=== PATIENT | female | born 1950 | race Caucasian/White ===

== ENCOUNTER 2020-09-27 14:39 | Inpatient (IN) | payer OTHER, MEDICAID ==
[~2020-09-27] VITALS: Ht 157.5 cm; Wt 114.5 kg
[2020-09-27 14:39] VITALS: BP 103/61
[2020-09-27 15:31] LABS: ABSOLUTE NEUTROPHILS 3.2 thou/uL (1.4-8.2); BASOPHILS 0.8 % (0.0-2.0); EOSINOPHILS 3.6 % (0.0-3.0); HEMATOCRIT 33.9 % (37.0-47.0); LYMPHOCYTES 25.9 % (24.0-44.0); MCH 29.8 pg (26.0-34.0); MCHC 32.3 g/dL (28.0-37.0); MCV 92.2 fL (80.0-100.0); MONOCYTES 14.7 % (1.0-8.0); PLATELET COUNT 199 thou/uL (150-400); RBC 3.68 mil/uL (4.20-5.00); RDW 17.9 % (10.5-14.5); WBC 5.8 thou/uL (4.0-11.0)
[2020-09-27 15:42] LABS: ANION GAP 12 mmol/L (7-16); BUN 77 mg/dL (7-18); CALCIUM 10.2 mg/dL (8.5-10.1); CHLORIDE 109 mmol/L (98-107); CO2 22 mmol/L (21-32); CREATININE 2.3 mg/dL (0.6-1.0); GLUCOSE 69 mg/dL (74-106); POTASSIUM 5.2 mmol/L (3.5-5.1); SODIUM 143 mmol/L (136-145)
[2020-09-27 15:53] LABS: ALBUMIN 3.8 g/dL (3.4-5.0); SGOT 27 U/L (15-37); SGPT 24 U/L (14-59); TOTAL BILIRUBIN 0.3 mg/dL (0.2-1.0); TOTAL PROTEIN 7.4 g/dL (6.4-8.2); TROPONIN-I <0.06 ng/mL (<0.06)
[2020-09-27 16:18] LABS: URINE BLOOD NEGATIVE (Negative); URINE CLARITY CLEAR; URINE COLOR YELLOW; URINE GLUCOSE-RANDOM* NEGATIVE (Negative); URINE KETONES 1+ (Negative); URINE LEUKOCYTES-REFLEX NEGATIVE (Negative); URINE NITRITE-REFLEX NEGATIVE (Negative); URINE PROTEIN (DIPSTICK) NEGATIVE (Negative); URINE SPECIFIC GRAVITY 1.015 (1.005-1.035); URINE UROBILINOGEN 0.2 E.U./dl (0.2-1.0)
[2020-09-27 16:21] LABS: ICTOTEST (BILI CONFIRMATORY) Negative (Negative); URINE BILIRUBIN NEGATIVE (Negative)
[2020-09-27 18:04] LABS: BE(vivo) -6.1 mmol/L (-2 to +3); HCO3 19.5 mmol/L (22.0-26.0); PCO2 38.8 mmHg (35.0-45.0); PO2 89.2 mmHg (80.0-100.0); pH 7.318 (7.360-7.450); sO2 96.2 % (92.0-98.0)
--- NOTE | 2020-09-27 19:07 | NUR ---
REPORT GIVEN TO CLARE PEREZ AT THIS TIME
[2020-09-27 19:59] VITALS: BP 103/60
[2020-09-27 22:58] LABS: BE(vivo) -7.5 mmol/L (-2 to +3); HCO3 18.2 mmol/L (22.0-26.0); PCO2 37.6 mmHg (35.0-45.0); PO2 69.2 mmHg (80.0-100.0); sO2 92.3 % (92.0-98.0)
[2020-09-27 22:59] LABS: pH 7.302 (7.360-7.450)
[2020-09-28 00:11] LABS: CALCIUM 9.6 mg/dL (8.5-10.1); CREATININE 1.7 mg/dL (0.6-1.0); POTASSIUM 5.3 mmol/L (3.5-5.1)
--- NOTE | 2020-09-28 01:38 | NUR ---
TRANSITION OF CARE FAXED TO [facility]
[2020-09-28 02:37] VITALS: BP 108/52
[2020-09-28] MEDS ORDERED: DIAZEPAM 10 MG10 M1 PO (04:31)
[2020-09-28] MEDS ORDERED: COLACE100 MG PO (04:31)
[2020-09-28] MEDS ORDERED: TIZANIDINE HCL2 M1 PO (04:33)
[2020-09-28] MEDS ORDERED: CALCIUM500 MG PO (04:34)
[2020-09-28] MEDS ORDERED: CHILDREN'S ZYRT10 M1 PO (04:35)
[2020-09-28] MEDS ORDERED: FAMOTIDINE 20 M20 MG PO (04:36)
[2020-09-28] MEDS ORDERED: FUROSEMIDE 40 M40 MG PO (04:36)
[2020-09-28] MEDS ORDERED: HYDROCODON-ACE1 EAC5 PO (04:41)
[2020-09-28] MEDS ORDERED: LISINOPRIL20 MG PO (04:41)
[2020-09-28] MEDS ORDERED: MELOXICAM15 MG PO (04:42)
[2020-09-28] MEDS ORDERED: OLANZAPINE5 M1 PO (04:43)
[2020-09-28] MEDS ORDERED: PRENATAL PO (04:44)
[2020-09-28] MEDS ORDERED: TRAZODONE HCL50 MG PO (04:44)
[2020-09-28] MEDS ORDERED: VITAMIN D21250 MCG PO (04:45)
[2020-09-28] MEDS ORDERED: HYDROCHLOROTHIA25 M1 PO (04:49)
[2020-09-28 05:24] VITALS: BP 138/77
--- NOTE | 2020-09-28 07:33 | NUR ---
ASSUMED CARE OF PT FROM ED AT 0230, PT IS ALERT/O X2. MEJIA CATHERTER IS IN PLACE AND PATENT. ASSESSMENT COMPLETED NOTED,PT REMAINS ON RA WITHOUT COMPLAINTS AT THIS TIME. WILL CONTINUE TO WORK TOWARDS PT'S POC.
[2020-09-28 08:00] VITALS: BP 119/69
--- NOTE | 2020-09-28 09:47 | EKG ---
[address] [address] ELECTROCARDIOGRAM REPORT Name: TATUM LIND Room #: 212-P ADM IN M.R.#: [id number] Admission: 09/27/20 Attend Phys: Sabas Brown MD Discharge: Date of : 52 Report #: [id number] [facility] ED Test Date: 2020-09-27 Test Time: 14:58:05 Pat Name: TATUM CERVANTES Department: Room: [facility] Gender: F Physician Anesthesiologist: DALLIN : 1950 Requested By: Shante Bernstein Order Number: [id number] MD: Roberto Ortega Measurements Intervals [place] Rate: 100 P: 72 ID: [id number] QRS: 80 QRSD: 107 T: 31 QT: 348 QTc: 449 Interpretive Statements Sinus tachycardia Low voltage No previous ECG available for comparison Electronically Signed On 09-28-2020 9:47:37 CDT by Roberto Ortega [email or web address] <ELECTRONICALLY SIGNED> By: Roberto Ortega MD, [facility] 09/28/20 0947 [id number] Roberto Ortega MD, FACC /EPI
[2020-09-28 12:00] VITALS: BP 116/66
[2020-09-28 15:07] VITALS: BP 128/62
--- NOTE | 2020-09-28 15:18 | NUR ---
met with patient who reports she resides at home alone. All needs on one level. She uses rolator walker for assistance. Patient A/Ox4. Patient reports she has HBCS 29 hours a week. Patient reports she has been at [employer] often that she believes they will not allow her to return. Patient reports She was at [facility] dc to [facility]. Went home from [facility]. Readmit to [facility], went to [facility] at [facility]. She reports [facility] discharged her to home and she felt she was not ready to discharge. She reports adult protective services came to her home. She reports she was advised to come to hospital. Patient reports she has manager document Lor Coker [phone]. Patient hallucinating in room. Visions of a man in room that was not pressent. She then rambled into a story of her ex-husbands brother is "johnnie." He 5 woman and had 5 sons all named "amanuel." She said he was a "pedophile AND he short woman so they were at the size to eat placentas." Spoke with manager document who reports she is manager document for [facility]. She herself her manager document for approx 2 years as she has not been fired by patient like others in their office. She reports they assisted in moving patient to new home where all needs on one level. Patient has mental health manager document through [facility]. She reports patient hotlined many times with APS making visits. Patient either fires caegiver or they quit then the worker who quits hotlines patient. Patient does not make good decisions regarding her care. She may or may not take medications as prescribed. Psych to eval patient as well as therapy. manager document reports last admission at [facility] she needed to be on speaker phone with SW to talk patient to be agreeable for skilled care. House Visitor Lor reports she will be very happy to assist with dc planning with hospital. casemgt following
--- NOTE | 2020-09-28 20:34 | NUR ---
RECEIVED THE PATIENT ON BED, CONSCIOUS, ORIENTED TO SELF BUT CONFUSED AND LOOKS LIKE HAVING DELIRIUM.ON ROOM AIR BREATHING SPONTANEOUSLY.NOT IN DISTRESS.SEEN AND ASSESSED BY PSYCHIATRY, ALL ORDERS CARRIED OUT.ALL NEEDS ATTENDED.FALL PREVENTION MEASURES MAINTAINED.COMFORT MEASURES PROVIDED.THERAPEUTIC COMMUNICATION DONE.
[2020-09-28 22:46] VITALS: BP 133/77
[2020-09-29 00:16] VITALS: BP 133/77
--- NOTE | 2020-09-29 04:25 | NUR ---
ASSUMED CARE OF PT AT 1900, PT C/O OF PAIN AND REFUSED ACETAMENOPHEN. IRONWORKER CONTACTED FOR HYDROCODONE, ORDER RECIEVED AND INITIATED. PT ASSESSMENT COMPLETED NOTED, PT ENCOURAGED TO WEAR SCD'S AND CHANGE POSITIONS TO ALVEVIATE STIFFNESS AND PAIN, PT REFUSES SCD'S BUT COMPLIES WITH POSITION CHANGES. WILL CONTINUE TO WORK ON POC.
[2020-09-29 06:20] VITALS: BP 132/76
[2020-09-29 07:07] LABS: CALCIUM 9.6 mg/dL (8.5-10.1); CREATININE 0.9 mg/dL (0.6-1.0); POTASSIUM 4.2 mmol/L (3.5-5.1)
[2020-09-29 08:00] VITALS: BP 151/88
[2020-09-29 11:30] VITALS: BP 149/85
[2020-09-29 15:00] VITALS: BP 144/91
--- NOTE | 2020-09-29 18:21 | NUR ---
ASSUEMED PATIENT CARE AT 0700. A/O X4. IRRITABLE. FREQUENTLY INTERIOR DECORATOR PAINTING LIGHT OR CALL 911 THAT WANTS TO TRANSFER TO OTHER HOSPITAL. GENERLIZED WEAKNESS. POOR APPETITE, VSS, NOT TOWARDS POC GOALS.
[2020-09-29 20:23] VITALS: BP 133/90
--- NOTE | 2020-09-30 04:05 | NUR ---
Notified KILN LOADER (Rina Mclaughlin) of patient's increased agitation and anxiety throughout night. Verbal order rec'd.
[2020-09-30 05:00] VITALS: BP 154/89
--- NOTE | 2020-09-30 06:30 | NUR ---
Pt restless, agitated, and anxious most night with escalating pychotic episodes. ELECTRONIC INDUSTRIAL CONTROLS MECHANIC notified. Zyprexa ODT given per PRN. Scheduled valium to start this morning. Nascimento intact. Adequate urine output. Frequent loose stools. Merly care provided with each incontinent episode. Pt also c/o generalized body aches and headaches most of the shift. Tylenol provided per PRN order. Minimal effectiveness noted.
[2020-09-30 07:37] VITALS: BP 165/87
[2020-09-30 11:32] VITALS: BP 153/76
[2020-09-30 16:58] VITALS: BP 135/83
--- NOTE | 2020-09-30 18:23 | NUR ---
ASSESSMENT CHARTED- MEDS PER MAY - GIVEN TYLENOL X 2 DOSES FOR CO'S OF HEADACHE WITH LITTLE RESULTS PT STATES, ALSO GIVEN MEDICATION FOR AGGITATION. TAMEKA DIET AND FLUIDS - PT THREW WATER AND TRAY ON FLOOR TODAY AND STATED IT WAS BECAUSE SHE FELT CLAUSTRAPHOBIC. PT LAYING IN BED TALKING TO PEOPLE THAT ARE NOT IN THE ROOM. PT STATING THAT SHE CANNOT STAND BECAUSE SHE HAS NOT HAD HER WATER PILL. DR SPARKS SEE PATIENT. PT IN ROOM TALKING TO NO ONE AT THE PRESENT TIME.
[2020-09-30 20:00] VITALS: BP 172/87
[2020-10-01 04:00] VITALS: BP 165/91
[2020-10-01 08:00] VITALS: BP 169/65
[2020-10-01 16:00] VITALS: BP 147/77
--- NOTE | 2020-10-01 18:03 | NUR ---
Spoke with patient regarding post acute care. She is agreeable to referral to [facility]. [facility] reviewed and cannot accept her medicaid policy. Sp with patient and reviewed other options. Referral to [facility] ([facility]). Left with admissions. Casemgt following
--- NOTE | 2020-10-01 18:49 | NUR ---
RECEIVED THE PATIENT CONSICOUS AND ORIENTED TO SELF, SOMETIMES CONFUSED.ON ROOM AIR BREATHING SPONTANEOUSLY.THERE IS NO IV CANNULA PRESENT WHEN I RECEIVED THE PATIENT, ASKED PERMISSION FROM THE PATIENT FOR ME TO INSERT A NEW IV CANNULA BUT SHE STRONGLY REFUSED.INFORMED HER THAT WE NEED TO HAVE AT LEAST ONE IV CANNULA IN CASE OF EMERGENCY BUT SHE STILL REFUSED.SEEN BY DR. SHEPARD, INFORMED HIM THAT PATIENT REFUSED IV REINSERTION, ACCORDING TO HIM NO NEED TO REINSERT.DR. SHEPARD ORDERED TO REMOVE THE MEJIA CATHETER.ALL NEEDS ATTENDED.
[2020-10-01 20:00] VITALS: BP 138/81
[2020-10-02 04:00] VITALS: BP 149/87
[2020-10-02 11:30] VITALS: BP 122/58
--- NOTE | 2020-10-02 12:04 | NUR ---
PATIENT IS REFUSING HEPARIN AND SCD'S. EDUCATED ON VTE COMPLIANCE. CONTINUES TO REFUSE. PATIENTS MOOD FLUCUATES FREQUENTLY, PSYCH FOLLOWING. ORDERS FOR HYDROCODONE PER PATIENT REQUEST FOR PAIN MANAGEMENT. VSS. PURWICK IN PLACE. GOOD URINE OUTPUT.
--- NOTE | 2020-10-02 13:44 | NUR ---
SPOKE WITH PATIENT AND UPDATED [place] DECLINED DUE TO BEHAVIORS. FAXED REFERRAL TO [facility] AND [facility].
[2020-10-02 14:45] VITALS: BP 1471/78
--- NOTE | 2020-10-02 16:45 | NUR ---
spoke with Jayne at [facility] they are reviewing. Left [address] [facility].
[2020-10-02 20:48] VITALS: BP 138/70
[2020-10-03 04:20] VITALS: BP 145/80
[2020-10-03 08:15] VITALS: BP 125/81
--- NOTE | 2020-10-03 14:16 | NUR ---
Met at beside with patient for 45 minutes to discuss plan of care for discharge. Patient was tangential in speech and thought; but did allow for patient to vent concerns from pervious SNF environments to previous encounters within the medical community. Eventually patient agreed to SNF at [facility] to be discharged on 10-04-20 between 1:30 and 2:00 PM. Patient did ask to make sure to have lunch and a shower prior to leaving. Notified SW and breaker unit assembler on the of above plan and encounter.
[2020-10-03 14:54] VITALS: BP 133/72
[2020-10-03 15:15] LABS: URINE BILIRUBIN NEGATIVE (Negative); URINE BLOOD NEGATIVE (Negative); URINE CLARITY SL CLOUDY; URINE COLOR YELLOW; URINE GLUCOSE-RANDOM* NEGATIVE (Negative); URINE KETONES NEGATIVE (Negative); URINE LEUKOCYTES 3+ (Negative); URINE NITRITE NEGATIVE (Negative); URINE PROTEIN (DIPSTICK) TRACE (Negative); URINE UROBILINOGEN 0.2 E.U./dl (0.2-1.0)
[2020-10-03 15:28] LABS: CALCIUM OXALATE 0-3 Few /LPF (None Seen); CASTS None Seen /LPF (None Seen); SQUAMOUS 0-3 Few /LPF (0-3)
[2020-10-03 15:29] LABS: BACTERIA >30 Many /HPF (None Seen)
[2020-10-03 15:30] LABS: URINE RBC None Seen /HPF (NONE SEEN); URINE WBC 1-5 Rare /HPF (NONE SEEN)
--- NOTE | 2020-10-03 16:04 | NUR ---
FAXED CLINICAL UPDATES AND NEGATIVE COVID RESULT (09/27/20) TO [facility]. WILL CONFIRM WITH JODY/LIAISON THAT THEY RECEIVED. [facility] P [phone]; FAX [phone]; M [phone]
--- NOTE | 2020-10-03 17:35 | NUR ---
[facility] can accept. Patient wants to be in [facility], [facility] is not accepting due to "behaviors" Patient upset not accepting for that reason reports it tarnishes her reputation. She wants to transfer to [facility] and have a psych eval. Discussed Dr Brown has spoken with [facility] and they are not accepting for psych. Sp with her therapst Seb who has apt with patient at 4pm tomorrow and sp with patient they can do by phone. Patient cont to refuse transfer. requested Director of [facility] sp with patient. She has completed her discussion and patient agreeable to transfer in am at 1400. Rachel with [facility] to meet with patient at 1100 to ease in transiton. Patient is not vaccinated [facility].
[2020-10-03 20:15] VITALS: BP 120/71
[2020-10-04 04:45] VITALS: BP 110/66
[2020-10-04 07:30] VITALS: BP 113/77
[2020-10-04 11:25] VITALS: BP 139/72
[2020-10-04] MEDS ORDERED: CIPROFLOXACIN500 M1 PO (13:10)
--- NOTE | 2020-10-04 13:38 | NUR ---
FAXED DISCHARGE ORDERS, SUMMARY AND NEGATIVE COVID RESULT (10/04/20) TO [facility]. INFORMED JODY/ADMISSIONS THAT DISCHARGE ORDERS WERE FAXED AND WILL FOLLOW UP TO CONFIRM. CHART COPY REQUESTED. RN NOTIFIED. [facility] P [phone]; FAX [phone]; M [phone]
--- NOTE | 2020-10-04 14:36 | NUR ---
REPORT CALLED TO CLARE VIERA AT [facility]. NO QUESTIONS OR CONCERNS AT TIME OF REPORT. PATIENTS $39.OO RETRIEVED FROM SECURITY AND PLACED IN HER PURSE.
--- NOTE | 2020-10-04 15:22 | NUR ---
TRANSPORT ARRIVED TO TAKE PATIENT TO [facility]. TRANSFERED TO [facility], BELONGINGS SENT WITH PATIENT. TELE REMOVED.
--- NOTE | 2020-10-04 16:56 | NUR ---
Patient met with [facility] liason. She is agreeable to dc to [facility]. Plan dc today at 1500. Chart copied. Ordrers faxed. Marva test neg. Spoke with [facility] hand bulldozer [facility] casemgr Lor Taylor of or. She arranges home support for patient. No further needs
== END 2020-10-04 15:31 | DRG 682 ==
LOC: ER 14:39 → EROBS 20:34 → 2N 20:34
PROVIDERS: Nurse Practitioner Family; ADMIT Internal Medicine; ATTEND Internal Medicine
DX: N17.9 Acute kidney failure, unspecified (principal); J96.01 Acute respiratory failure with hypoxia; G93.41 Metabolic encephalopathy; E87.2 Acidosis; Z68.42 Body mass index [BMI] 45.0-49.9, adult; E87.5 Hyperkalemia; N18.9 Chronic kidney disease, unspecified; D72.10 Eosinophilia, unspecified; E66.01 Morbid (severe) obesity due to excess calories; Z60.2 Problems related to living alone; R41.0 Disorientation, unspecified; F41.9 Anxiety disorder, unspecified; F39 Unspecified mood [affective] disorder; Z20.822 Contact with and (suspected) exposure to COVID-19; Z88.8 Allergy status to other drugs, medicaments and biological substances; Z79.899 Other long term (current) drug therapy
CPT/HCPCS: 10081